=== PATIENT | female | born 1940 | race Caucasian/White ===

== ENCOUNTER 2023-07-14 10:14 | Outpatient (CLI) | payer OTHER | END 2023-07-14 10:17 | disposition home or self-care (01) | LOC: SONOGRAMA 10:14 | PROVIDERS: ATTEND Pathology Anatomic Pathology | DX: D34 Benign neoplasm of thyroid gland (principal); E04.9 Nontoxic goiter, unspecified ==

== ENCOUNTER 2025-08-05 09:42 | Outpatient (CLI) | payer OTHER | END 2025-08-05 09:44 | disposition home or self-care (01) | LOC: SONOGRAMA 09:42 | PROVIDERS: ATTEND Pathology Anatomic Pathology | DX: D34 Benign neoplasm of thyroid gland (principal); E07.89 Other specified disorders of thyroid; E04.2 Nontoxic multinodular goiter ==